=== PATIENT | male | born 1960 | race Caucasian/White ===

== ENCOUNTER 2024-12-13 10:16 | Day surgery (SDC) | payer MEDICARE ==
[~2024-12-13] VITALS: Ht 170.2 cm; Wt 83.6 kg
[2024-12-13] VITALS (7 sets, daily range): BP systolic 131–160; BP diastolic 78–90
[~2024-12-13 10:16] MED LIST: Amoxicillin500 MG PO; Norco 5-325 Ta1 EACH PO; PERIDEX15 ML MM
[2024-12-13] MEDS ORDERED: Heparin Sodium 1000 Units/ML 10ML MDV ONE (12:06)
[2024-12-13] MEDS ORDERED: NS 250 ML IV ONE (12:06)
[2024-12-13] MEDS ORDERED: NS 1,000 ML IV ONE (12:06)
[2024-12-13] MEDS ORDERED: Verapamil HCL 2.5 MG/ML 2ML Injection ONE (12:06)
[2024-12-13] MEDS ORDERED: Nitroglycerin 2 MG/20 ML BTL ONE (12:07)
[2024-12-13] MEDS ORDERED: FentaNYL Citrate 50 MCG/ML 2 ML Injection ONE (13:03)
[2024-12-13] MEDS ORDERED: Midazolam HCl 1MG / ML 2ML Vial ONE (13:03)
--- NOTE | 2024-12-13 14:47 | NUR ---
PATIENT BACK TO RECOVERY ROOM AT 1420 S/P CORONARY ANGIOGRAM AND RIGHT HEART CATH. PT AWAKE AND ALERT, UP IN RECLINER. DENIES C/O PAIN, CHEST PAIN, HAND PAIN. RIGHT TR BAND SITE REVIEWED WITH SODA DRIER FEEDER; SITE WNL, W/O SWELLING, BLEEDING, OR TENDERNESS. PATIENT ATE A SANDWICH AND TOLERATED JUICE. VSS. PT'S AT BEDSIDE.
--- NOTE | 2024-12-13 15:49 | NUR ---
TR band air removed over 30 min starting at 1505. Site stable w/o any swelling, bleeding, pain, or hematoma. Dr Villanueva at bedside to answer questions and update patient and his .
--- NOTE | 2024-12-13 16:44 | NUR ---
VERBAL AND WRITTEN DISCHARGE INSTRUCTIONS GIVEN TO PATIENT AND PT'S WITH CLEAR UNDERSTANDING. TR BAND REMOVED, DRSG PLACED, WRIST IMMOBILIZER IN PLACE. SITE WNL W/O BLEEDING, SWELLING, OR TENDERNESS. VSS. PT ESCORTED OUT VIA WHEELCHAIR. DISCHARGED AT 1626 TO CARE OF PATIENT'S .
== END 2024-12-13 22:00 | disposition home or self-care (01) ==
LOC: MHTC 10:16
DX: I35.0 Nonrheumatic aortic (valve) stenosis (principal); E78.00 Pure hypercholesterolemia, unspecified
CPT/HCPCS: 76937; 93456; 93571; 93572; 99152; 99153; A9270; C1769; C1887; C1894; J1644; J2250; J3010; J7030; J7050; Q9967

== ENCOUNTER → 2025-03-09 | Outpatient (CLI) | payer MEDICARE | LOC: LAB SHORT 17:30 → LAB 17:30 | DX: S11.80XA Unspecified open wound of other specified part of neck, initial encounter (principal) | CPT/HCPCS: 87070; 87075; 87077; 87186; 87205 ==